=== PATIENT | female | born 1990 | race Caucasian/White ===

== ENCOUNTER 2019-04-28 18:38 | Emergency (ER) | payer OTHER ==
[~2019-04-28] VITALS: Ht 160 cm; Wt 90.7 kg
== END 2019-04-28 22:02 | disposition home or self-care (01) ==
LOC: ER 18:38
DX: J06.9 Acute upper respiratory infection, unspecified (principal); J32.8 Other chronic sinusitis

== ENCOUNTER → 2020-05-07 | Emergency (ER) | payer OTHER ==
[~2020-05-07] VITALS: Ht 160 cm; Wt 86.2 kg
== END | disposition left against medical advice (07) ==
LOC: ER 19:01
DX: Z53.20 Procedure and treatment not carried out because of patient's decision for unspecified reasons (principal)

== ENCOUNTER 2020-06-05 12:21 | Emergency (ER) | payer OTHER ==
[~2020-06-05] VITALS: Ht 160 cm; Wt 87.1 kg
== END 2020-06-05 14:34 | disposition home or self-care (01) ==
LOC: ER 12:21
DX: M25.512 Pain in left shoulder (principal); M62.838 Other muscle spasm; F41.8 Other specified anxiety disorders

== ENCOUNTER 2023-02-07 09:21 | Outpatient (CLI) | payer OTHER | END 2023-02-07 09:26 | disposition home or self-care (01) | LOC: PRENATAL 09:21 | PROVIDERS: ATTEND Obstetrics & Gynecology Maternal & Fetal Medicine | DX: O36.80X0 Pregnancy with inconclusive fetal viability, not applicable or unspecified (principal); Z36.82 Encounter for antenatal screening for nuchal translucency; O34.219 Maternal care for unspecified type scar from previous cesarean delivery; Z36.9 Encounter for antenatal screening, unspecified; Z3A.13 13 weeks gestation of pregnancy ==

== ENCOUNTER 2023-02-20 02:55 | Emergency (ER) | payer OTHER ==
[~2023-02-20] VITALS: Ht 160 cm; Wt 87.5 kg
[2023-02-20] MEDS ORDERED: PROGESTERONE200 MG PO (03:08)
[2023-02-20 05:24] LABS: HEMOGLOBIN 13.1 g/dL (12.0-15.00); MEAN CELL VOLUME 79.3 fL (80.00-100.00); MEAN CORPUSCULAR HEMOGLOBIN 28.1 pg (27.00-32.0); MEAN CORPUSCULAR HGB CONC 35.4 g/dl (32.0-36.0); PLATELET COUNT 230 K/uL (150-450); RED BLOOD COUNT 4.66 M/uL (4.00-6.00); RED CELL DISTRIBUTION WIDTH 13.7 % (11.5-14.5)
[2023-02-20 05:36] LABS: INR 0.98; PARTIAL THROMBOPLASTIN TIME 29.4 SECONDS (22.0-34.0); PROTHROMBIN TIME 10.3 SECONDS (9.0-11.5)
[2023-02-20 06:03] LABS: GFR 131.68; POTASSIUM 4.16 mEq/L (3.5-5.1)
[2023-02-20 06:07] LABS: PH,URINE 6.5 (5.0-8.0); URINE APPEARANCE Clear; URINE BILIRRUBIN Negative (NEGATIVE); URINE BLOOD Moderate; URINE COLOR Yellow; URINE GLUCOSE Negative (NEGATIVE); URINE LEUKOCYTE Negative; URINE NITRATE Negative; URINE PROTEIN Negative (NEGATIVE); URINE UROBILINOGEN 0.2 E.U./dl
[2023-02-20 06:09] LABS: CREATININE SERUM 0.54 mg/dL (0.55-1.02)
[2023-02-20 06:11] LABS: URINE BACTERIA 938.5 uL (0.0-1933); URINE EPITHELIAL CELLS 8.1 uL (0.0-38.8); URINE RBC 32.6 uL (0.0-20.8); URINE WBC 1.8 uL (0.0-23.2)
== END 2023-02-20 11:10 | disposition home or self-care (01) ==
LOC: ER 02:55
PROVIDERS: General Practice
DX: O20.0 Threatened abortion (principal); Z91.013 Allergy to seafood; Z88.0 Allergy status to penicillin; Z3A.15 15 weeks gestation of pregnancy

== ENCOUNTER → 2023-03-29 07:58 | Outpatient (CLI) | payer OTHER ==
[~2023-03-29 07:58] MED LIST: PROGESTERONE200 MG PO
== END | disposition home or self-care (01) ==
LOC: PRENATAL 07:58
PROVIDERS: ATTEND Obstetrics & Gynecology Maternal & Fetal Medicine
DX: O35.3XX0 Maternal care for (suspected) damage to fetus from viral disease in mother, not applicable or unspecified (principal); O44.00 Complete placenta previa NOS or without hemorrhage, unspecified trimester; O34.219 Maternal care for unspecified type scar from previous cesarean delivery; Z3A.20 20 weeks gestation of pregnancy

== ENCOUNTER 2023-04-04 16:27 | Outpatient (CLI) | payer OTHER ==
[2023-04-04 17:40] LABS: URINE APPEARANCE Clear; URINE BILIRRUBIN Negative (NEGATIVE); URINE BLOOD Negative; URINE COLOR Yellow; URINE GLUCOSE Negative (NEGATIVE); URINE LEUKOCYTE Negative; URINE NITRATE Negative; URINE PROTEIN Negative (NEGATIVE); URINE UROBILINOGEN 0.2 E.U./dl
[2023-04-04 17:42] LABS: URINE BACTERIA 339.8 uL (0.0-1933); URINE EPITHELIAL CELLS 4.1 uL (0.0-38.8)
[2023-04-04 17:43] LABS: URINE RBC 0.8 uL (0.0-20.8); URINE WBC 1.5 uL (0.0-23.2)
== END 2023-04-04 18:45 | disposition home or self-care (01) ==
LOC: OBS/DEL 16:27
PROVIDERS: Student in an Organized Health Care Education/Training Program; ATTEND Obstetrics & Gynecology
DX: O26.892 Other specified pregnancy related conditions, second trimester (principal); Z3A.21 21 weeks gestation of pregnancy; R10.2 Pelvic and perineal pain; Z88.0 Allergy status to penicillin; Z91.013 Allergy to seafood

== ENCOUNTER 2023-05-07 14:03 | Outpatient (CLI) | payer OTHER | END 2023-05-07 14:04 | disposition home or self-care (01) | LOC: PRENATAL 14:03 | PROVIDERS: ATTEND Obstetrics & Gynecology Maternal & Fetal Medicine | DX: O26.849 Uterine size-date discrepancy, unspecified trimester (principal); O34.219 Maternal care for unspecified type scar from previous cesarean delivery; Z3A.26 26 weeks gestation of pregnancy ==